=== PATIENT | male | born 1960 | race Caucasian/White ===

== ENCOUNTER 2019-04-24 08:43 | Emergency (ER) | payer OTHER ==
[~2019-04-24] VITALS: Ht 154.9 cm; Wt 91.6 kg
--- NOTE | 2019-04-24 08:58 | NUR ---
59 YEAR OLD MALE C/O LLE PAIN FROM A CAR DOOR INJURY. ALERT AND OREINTED X4. HE IS ABLE VERBALIZE NEEDS IN HIS [employer] LANGUAGE. BREATHING EVEN AND UNLABORED WITH NO DISTRESS NOTED. SKIN WARM TO TOUCH AND INTACT. AWAITING TO BE SEEN BY
--- NOTE | 2019-04-24 08:59 | NUR ---
X-RAY TECH AT BEDSIDE
[2019-04-24 09:39] VITALS: BP 151/88
--- NOTE | 2019-04-24 09:40 | NUR ---
Patient discharged to home in stable condition. Written and verbal after care instructions given. Patient verbalizes understanding of instruction.
== END 2019-04-24 09:40 | disposition home or self-care (01) ==
LOC: ER 08:43
DX: S83.8X2A Sprain of other specified parts of left knee, initial encounter (principal); I10 Essential (primary) hypertension; W23.0XXA Caught, crushed, jammed, or pinched between moving objects, initial encounter; Y93.89 Activity, other specified; Y92.89 Other specified places as the place of occurrence of the external cause; Y99.0 Civilian activity done for income or pay
CPT/HCPCS: 73564-TC